=== PATIENT | male | born 1960 | race Caucasian/White ===

== ENCOUNTER 2017-05-06 21:55 | Observation (INO) | payer BC ==
[2017-05-06] MEDS ORDERED: ASPIRIN 81 MG PO STA (22:30)
[2017-05-06] MEDS ORDERED: SODIUM CHLORIDE 0.9% 500 ML IV STA (22:30)
[2017-05-06] MEDS ORDERED: FAMOTIDINE 20 MG/2 ML VIAL IV STA (22:31)
--- NOTE | 2017-05-06 22:34 | ED ---
General Adult HPI - General Chief complaint: Chest Pain Stated complaint: Chest tightness, Arm numbness Time Seen by Provider: 05/06/17 22:17 Source: patient, RN notes reviewed, old records reviewed Mode of arrival: wheelchair Limitations: no limitations - History of Present Illness Initial comments: 57-year-old male presents for evaluation of chest pain that began approximately 6:30 which was 4 hours prior to arrival. Pain began after eating pizza. States pain was similar to indigestion, he did have some belching. No nausea. No diaphoresis. Pain was substernal. Patient did complain of some left shoulder pain and left chest pain with his central chest pain. Patient was urged by family members to present for evaluation. He had some shortness of breath associated with pain. He has no known history of coronary artery disease , never had any cardiac testing in the past. No known family history of heart disease. Patient does have 16-ydiy-ndyz history of tobacco, he is hypertensive. No history diabetes. Patient states that he has had some trouble swallowing and is planned to have an evaluation with his primary care physician regarding this complaint. - Related Data Home Medications Medication Instructions Recorded Confirmed Atorvastatin [Lipitor] 10 mg PO HS 04/21/14 05/06/17 Allergies Allergy/AdvReac Type Severity Reaction Status Date / Time cephalexin monohydrate Allergy Rash/Hives Verified 05/06/17 22:00 [From Keflex] Penicillins Allergy Rash/Hives Verified 05/06/17 22:00 Review of Systems ROS Statement: Those systems with pertinent positive or pertinent negative responses have been documented in the HPI. ROS Other: All systems not noted in ROS Statement are negative. Past Medical History Past Medical History: Hyperlipidemia, Hypertension, Sleep Apnea/CPAP/BIPAP Additional Past Medical History / Comment(s): LEFT INGUINAL HERNIA, PREVIOUS HX OF SLEEP APNEA, NO LONGER AFTER WEIGHT LOSS History of Any Multi-Drug Resistant Organisms: None Reported Past Surgical History: Orthopedic Surgery Additional Past Surgical History / Comment(s): RT SHOULDER, HEMMOROIDECTOMY Past Anesthesia/Blood Transfusion Reactions: No Reported Reaction Past Psychological History: No Psychological Hx Reported Smoking Status: Former smoker Past Alcohol Use History: Occasional Past Drug Use History: None Reported - Past Family History Mother Family Medical History: No Reported History General Exam Limitations: no limitations General appearance: alert, in no apparent distress Head exam: Present: atraumatic, normocephalic Eye exam: Present: normal appearance, PERRL, EOMI ENT exam: Present: normal exam Neck exam: Present: normal inspection. Absent: tenderness, meningismus Respiratory exam: Present: normal lung sounds bilaterally. Absent: respiratory distress, wheezes Cardiovascular Exam: Present: regular rate, normal rhythm, normal heart sounds GI/Abdominal exam: Present: soft. Absent: distended, tenderness, guarding Extremities exam: Present: normal inspection, full ROM, normal capillary refill. Absent: pedal edema Neurological exam: Present: alert, oriented X3, CN II-XII intact. Absent: motor sensory deficit Psychiatric exam: Present: normal affect, normal mood Skin exam: Present: warm, dry, intact. Absent: cyanosis, diaphoretic Course Vital Signs 05/06/17 05/06/17 05/06/17 21:58 22:19 22:52 Temperature 98.2 F Pulse Rate 106 H 98 Respiratory 18 18 18 Rate Blood Pressure 141/90 147/98 O2 Sat by Pulse 98 98 Oximetry EKG Findings - EKG Comments: EKG Findings:: EKG shows normal sinus rhythm, ventricular rate 99, CT interval 144, QS duration 106, QTC 451, no ST segment elevation, T-wave inversion in lead 3, T-wave flattening in aVF Medical Decision Making - Medical Decision Making 57-year-old male presenting for evaluation of chest pain, radiating to left chest and left shoulder. Patient is pain-free while the emergency department. He has no complaints. Pain began several hours prior to presentation. EKG shows T-wave inversion in lead 3 and flattening in aVF, no ST segment changes. Patient does have significant risk factors including 55-btio-kzmh history hypertension and hypercholesterolemia. Laboratory studies reveal white blood cell count which is normal, hemoglobin stable 14.9, which was within normal limits, d-dimer negative troponin is 0.017. Chest x-ray shows no acute findings. Patient will be started on heparin awaiting serial cardiac enzymes. He will be observed with cardiology on consult. Diagnosis: Chest pain, unstable angina - Lab Data Result diagrams: 05/06/17 22:13 05/06/17 22:13 Lab Results 05/06/17 05/06/17 05/06/17 Range/Units 22:13 22:13 22:13 WBC 6.2 (3.8-10.6) k/uL RBC 4.77 (4.30-5.90) m/uL Hgb 14.9 (13.0-17.5) gm/dL Hct 44.4 (39.0-53.0) % MCV 93.2 (80.0-100.0) fL MCH 31.3 (25.0-35.0) pg MCHC 33.5 (31.0-37.0) g/dL RDW 13.7 (11.5-15.5) % Plt Count 184 (150-450) k/uL Neutrophils % 58 % Lymphocytes % 27 % Monocytes % 8 % Eosinophils % 3 % Basophils % 1 % Neutrophils # 3.6 (1.3-7.7) k/uL Lymphocytes # 1.7 (1.0-4.8) k/uL Monocytes # 0.5 (0-1.0) k/uL Eosinophils # 0.2 (0-0.7) k/uL Basophils # 0.1 (0-0.2) k/uL PT (9.0-12.0) sec INR (<1.2) APTT (22.0-30.0) sec D-Dimer (<0.60) mg/L FEU Sodium 143 (137-145) mmol/L Potassium 3.7 (3.5-5.1) mmol/L Chloride 104 (98-107) mmol/L Carbon Dioxide 26 (22-30) mmol/L Anion Gap 13 mmol/L BUN 21 H (9-20) mg/dL Creatinine 1.10 (0.66-1.25) mg/dL Est GFR (MDRD) Af Amer >60 (>60 ml/min/1.73 sqM) Est GFR (MDRD) Non-Af >60 (>60 ml/min/1.73 sqM) Glucose 87 (74-99) mg/dL Calcium 9.3 (8.4-10.2) mg/dL Magnesium 1.8 (1.6-2.3) mg/dL Total Bilirubin 0.5 (0.2-1.3) mg/dL AST 43 (17-59) U/L ALT 65 (21-72) U/L Alkaline Phosphatase 28 L (38-126) U/L Total Creatine Kinase 305 H (55-170) U/L CK-MB (CK-2) 1.5 (0.0-2.4) ng/mL CK-MB (CK-2) Rel Index 0.5 Troponin I 0.017 (0.000-0.034) ng/mL NT-Pro-B Natriuret Pep pg/mL Total Protein 6.5 (6.3-8.2) g/dL Albumin 3.9 (3.5-5.0) g/dL Lipase 164 (23-300) U/L 05/06/17 05/06/17 Range/Units 22:13 22:13 WBC (3.8-10.6) k/uL RBC (4.30-5.90) m/uL Hgb (13.0-17.5) gm/dL Hct (39.0-53.0) % MCV (80.0-100.0) fL MCH (25.0-35.0) pg MCHC (31.0-37.0) g/dL RDW (11.5-15.5) % Plt Count (150-450) k/uL Neutrophils % % Lymphocytes % % Monocytes % % Eosinophils % % Basophils % % Neutrophils # (1.3-7.7) k/uL Lymphocytes # (1.0-4.8) k/uL Monocytes # (0-1.0) k/uL Eosinophils # (0-0.7) k/uL Basophils # (0-0.2) k/uL PT 10.3 (9.0-12.0) sec INR 1.1 (<1.2) APTT 24.2 (22.0-30.0) sec D-Dimer 0.22 (<0.60) mg/L FEU Sodium (137-145) mmol/L Potassium (3.5-5.1) mmol/L Chloride (98-107) mmol/L Carbon Dioxide (22-30) mmol/L Anion Gap mmol/L BUN (9-20) mg/dL Creatinine (0.66-1.25) mg/dL Est GFR (MDRD) Af Amer (>60 ml/min/1.73 sqM) Est GFR (MDRD) Non-Af (>60 ml/min/1.73 sqM) Glucose (74-99) mg/dL Calcium (8.4-10.2) mg/dL Magnesium (1.6-2.3) mg/dL Total Bilirubin (0.2-1.3) mg/dL AST (17-59) U/L ALT (21-72) U/L Alkaline Phosphatase (38-126) U/L Total Creatine Kinase (55-170) U/L CK-MB (CK-2) (0.0-2.4) ng/mL CK-MB (CK-2) Rel Index Troponin I (0.000-0.034) ng/mL NT-Pro-B Natriuret Pep 41 pg/mL Total Protein (6.3-8.2) g/dL Albumin (3.5-5.0) g/dL Lipase (23-300) U/L Critical Care Time Critical Care Time: Yes Total Critical Care Time: 35 Disposition Clinical Impression: Unstable angina pectoris Disposition: ADMITTED IP TO THIS [facility] Condition: Stable Referrals: Hardik Slade DO [Primary Care Provider] - 1-2 days Decision to Admit Reason: Admit from EC Decision Date: 05/06/17 Decision Time: 23:55
[2017-05-06 22:57] LABS: Basophils # (A) 0.1 k/uL (0-0.2); Basophils % (A) 1 %; Eosinophils # (A) 0.2 k/uL (0-0.7); Eosinophils % (A) 3 %; HCT 44.4 % (39.0-53.0); HGB 14.9 gm/dL (13.0-17.5); Lymphocytes # (A) 1.7 k/uL (1.0-4.8); Lymphocytes % (A) 27 %; MCH 31.3 pg (25.0-35.0); MCHC 33.5 g/dL (31.0-37.0); MCV 93.2 fL (80.0-100.0); Mean Platelet Volume 9.1; Monocytes # (A) 0.5 k/uL (0-1.0); Monocytes % (A) 8 %; Neutrophils # (A) 3.6 k/uL (1.3-7.7); Neutrophils % (A) 58 %; Platelet Count 184 k/uL (150-450); RBC 4.77 m/uL (4.30-5.90); RDW 13.7 % (11.5-15.5); WBC 6.2 k/uL (3.8-10.6)
--- NOTE | 2017-05-06 23:04 | XR ---
EXAMINATION TYPE: XR chest 2V DATE OF EXAM: 05/06/2017 COMPARISON: NONE HISTORY: Chest pain TECHNIQUE: Frontal and lateral views of the chest are obtained. FINDINGS: Heart and mediastinum are within normal limits. Lungs are clear. There are chest leads. Th ere is no sign of pleural effusion. Bony thorax is intact. IMPRESSION: No active cardiopulmonary disease.
[2017-05-06 23:08] LABS: ALT 65 U/L (21-72); AST 43 U/L (17-59); Albumin 3.9 g/dL (3.5-5.0); Alkaline Phosphatase 28 U/L (38-126); Anion Gap 13 mmol/L; Blood Urea Nitrogen 21 mg/dL (9-20); Calcium 9.3 mg/dL (8.4-10.2); Carbon Dioxide 26 mmol/L (22-30); Chloride 104 mmol/L (98-107); Glucose 87 mg/dL (74-99); Lipase 164 U/L (23-300); Magnesium 1.8 mg/dL (1.6-2.3); Potassium 3.7 mmol/L (3.5-5.1); Sodium 143 mmol/L (137-145); Total Bilirubin 0.5 mg/dL (0.2-1.3); Total Protein 6.5 g/dL (6.3-8.2)
[2017-05-06 23:20] LABS: D-Dimer 0.22 mg/L FEU (<0.60); INR 1.1 (<1.2); Partial Thromboplastin Time 24.2 sec (22.0-30.0); Prothrombin Time 10.3 sec (9.0-12.0)
[2017-05-06 23:22] LABS: Creatine Kinase MB 1.5 ng/mL (0.0-2.4); Troponin I 0.017 ng/mL (0.000-0.034)
[2017-05-06] MEDS ORDERED: HEPARIN SOD,PORK IN 0.45% NACL 25,000 UNIT in 0.45% NACL 1 500ML.BAG IV SCH (23:45)
[2017-05-06] MEDS ORDERED: HEPARIN SODIUM,PORCINE 5,000 UNIT/ML 1 ML VIAL IV ONE (23:48)
[2017-05-06] MEDS ORDERED: HEPARIN SODIUM,PORCINE 5,000 UNIT/ML 1 ML VIAL IV PRN (23:48)
[2017-05-06] MEDS ORDERED: NALOXONE 0.4 MG/ML 1 ML VIAL IV PRN (23:49)
[2017-05-06] MEDS ORDERED: MORPHINE SULFATE 2 MG/ML SYRINGE IV PRN (23:49)
[2017-05-06] MEDS ORDERED: ONDANSETRON 4 MG/2 ML VIAL IVP PRN (23:49)
[2017-05-06] MEDS ORDERED: NITROGLYCERIN SL TABS 0.4 MG TAB SUBLINGUAL PRN (23:52)
[2017-05-07] MEDS: SODIUM CHLORIDE 0.9% 1,000 ML IV SCH ×2 (00:09→00:10)
[2017-05-07 01:00] VITALS: BMI 28.1
[2017-05-07 05:27] LABS: Creatine Kinase MB 1.6 ng/mL (0.0-2.4)
[2017-05-07 05:34] LABS: Troponin I 0.125 ng/mL (0.000-0.034)
[2017-05-07] MEDS ORDERED: METOPROLOL TARTRATE 25 MG TAB PO ONE (06:00)
[2017-05-07 07:56] LABS: ALT 72 U/L (21-72); AST 43 U/L (17-59); Albumin 3.9 g/dL (3.5-5.0); Alkaline Phosphatase 28 U/L (38-126); Anion Gap 10 mmol/L; Blood Urea Nitrogen 16 mg/dL (9-20); Calcium 9.1 mg/dL (8.4-10.2); Carbon Dioxide 30 mmol/L (22-30); Chloride 103 mmol/L (98-107); Glucose 85 mg/dL (74-99); Potassium 4.1 mmol/L (3.5-5.1); Sodium 143 mmol/L (137-145); Total Bilirubin 0.7 mg/dL (0.2-1.3); Total Protein 6.5 g/dL (6.3-8.2)
[2017-05-07 07:58] LABS: Basophils # (A) 0.1 k/uL (0-0.2); Basophils % (A) 1 %; Eosinophils # (A) 0.4 k/uL (0-0.7); Eosinophils % (A) 7 %; HCT 43.8 % (39.0-53.0); HGB 14.7 gm/dL (13.0-17.5); Lymphocytes # (A) 1.4 k/uL (1.0-4.8); Lymphocytes % (A) 25 %; MCH 30.9 pg (25.0-35.0); MCHC 33.5 g/dL (31.0-37.0); MCV 92.2 fL (80.0-100.0); Mean Platelet Volume 8.8; Monocytes # (A) 0.4 k/uL (0-1.0); Monocytes % (A) 7 %; Neutrophils # (A) 3.1 k/uL (1.3-7.7); Neutrophils % (A) 56 %; Platelet Count 188 k/uL (150-450); RBC 4.76 m/uL (4.30-5.90); RDW 12.4 % (11.5-15.5); WBC 5.6 k/uL (3.8-10.6)
[2017-05-07] MEDS ORDERED: ALPRAZolam 0.5 MG TAB PO PRN (10:05)
[2017-05-07] MEDS ORDERED: NITROGLYCERIN SL TABS 0.4 MG TAB SUBLINGUAL PRN (10:05)
[2017-05-07] MEDS ORDERED: ALPRAZolam 0.25 MG TAB PO PRN (10:05)
[2017-05-07] MEDS ORDERED: SODIUM CHLORIDE 0.9% 1,000 ML in EMPTY BAG 1 BAG IV ONE (10:05)
[2017-05-07] MEDS ORDERED: ASPIRIN 325 MG TAB PO STA (10:07)
[2017-05-07] MEDS ORDERED: ATORVASTATIN 80 MG TAB PO STA (10:07)
--- NOTE | 2017-05-07 10:28 | CONS ---
CONSULTATION Mr. Regalado is a 57-year-old male with a history of hyperlipidemia, who presented with symptoms of palpitation and discomfort in the chest that occurred after eating pizza. He has no prior history of cardiac disease. He is usually active physically without difficulty. Denies any exertional chest pain or dyspnea. Recently, he had 2 episodes where he had some difficulty swallowing. Yesterday after he ate pizza, he felt his heart pounding and felt some discomfort in the chest. Came into the emergency room for further evaluation. He has no prior cardiac history. He denies any history of PND, orthopnea, or peripheral edema. No dizziness or syncope. His coronary risk factors are remarkable for hyperlipidemia. He has a remote history of smoking and a prior history of hypertension that he is off treatment after he has became active physically. He is nondiabetic. MEDICATION: His medications at home include Lipitor 10 mg daily, and ibuprofen on a p.r.n. basis. REVIEW OF SYSTEMS: Respiratory system: No history of documented asthma, emphysema or bronchitis. No recent wheezing. GI system: He had difficulty swallowing at times. No recent nausea or vomiting. system: No dysuria or hematuria. Nervous system: No stroke or seizure. PHYSICAL EXAMINATION: He is a 57-year-old male, alert, oriented, in no apparent distress. Blood pressure running in the 150s to 180s with a diastolic in the 100, heart rate in the 70s. HEAD: Normocephalic. Eyes: Sclerae anicteric. Neck: Good upstroke. No bruit. No jugular venous distention. LUNGS: Clear to auscultation. HEART: Regular rate and rhythm. S1, S2. No S3. No rub. ABDOMEN: Soft, nontender. Positive bowel sounds. No organomegaly. EXTREMITIES: No edema. Intact pulses. LAB DATA: Lab data revealed BUN and creatinine 16 and 0.8, potassium 4.1. Troponin of 0.17 and then 0.125. Hemoglobin of 14.7. EKG reveals sinus mechanism, normal axis, intervals with no acute changes. IMPRESSION: 1. Symptoms of chest discomfort with palpitation with mild elevation in troponin, rule out non ST-segment elevation myocardial infarction. 2. Hypertension. 3. Hyperlipidemia. RECOMMENDATION: I have recommended proceeding with coronary angiography to assess his status and guide his treatment. The rationale behind the procedure as well as risks and complications were discussed with the patient who is in full understanding and agreement. In the meantime, he will be started on beta tatyana in addition to a NOAH inhibitor to optimize his blood pressure and depending on the results of his workup, further recommendations will be made. Thank you for this consult. I will follow with you. TELMA / LETICIA: [id number] /
--- NOTE | 2017-05-07 10:44 | P.HPIM ---
History of Present Illness 57-year-old male presents for evaluation of chest pain that began approximately 6:30 which was 4 hours prior to arrival. Pain began after eating pizza. States pain was similar to indigestion, he did have some belching. No nausea. No diaphoresis. Pain was substernal. Patient did complain of some left shoulder pain and left chest pain with his central chest pain. Patient was urged by family members to present for evaluation. He had some shortness of breath associated with pain. He has no known history of coronary artery disease , never had any cardiac testing in the past. No known family history of heart disease. Patient does have 60-dsix-vpyy history of tobacco, he is hypertensive. No history diabetes. Patient states that he has had some trouble swallowing and is planned to have an evaluation with his primary care physician regarding this complaint. Vision screen completely resolved at this point of time and patient appears to have gastritis and patient did take His ibuprofen as today for his left rotator cuff pain. Although patient had set of troponin is negative second one is minimally elevated to 0.125 and the there is no other exhalation for troponin elevation because of his cardiology evaluated the patient and there recommending cardiac catheterization which will be done today. Patient's blood pressure is elevated as well and if cardiac cath is negative patient probably can be discharged if cleared by cardiology later today and he will need a Prilosec prescription for 15 days which will be provided and also patient will be started on lisinopril 5 mg and patient was counseled to check the blood pressure at home take to the primary care physician's office his blood pressures are consistently elevated here and patient was started on lisinopril by cardiology. Review of Systems REVIEW OF SYSTEMS: CONSTITUTIONAL: No fever, no malaise, no fatigue. HEENT: No recent visual problems or hearing problems. Denied any sore throat. CARDIOVASCULAR: No orthopnea, PND, no palpitations, no syncope. PULMONARY: No shortness of breath, no cough, no hemoptysis. GASTROINTESTINAL: No diarrhea, no nausea, no vomiting, no abdominal pain. Normoactive bowel sounds. NEUROLOGICAL: No headaches, no weakness, no numbness. HEMATOLOGICAL: Denies any bleeding or petechiae. GENITOURINARY: Denies any burning micturition, frequency, or urgency. MUSCULOSKELETAL/RHEUMATOLOGICAL: Denies any joint pain, swelling, or any muscle pain. ENDOCRINE: Denies any polyuria or polydipsia. The rest of the 14-point review of systems is negative. Past Medical History Past Medical History: Hyperlipidemia, Hypertension, Sleep Apnea/CPAP/BIPAP Additional Past Medical History / Comment(s): LEFT INGUINAL HERNIA, PREVIOUS HX OF SLEEP APNEA, NO LONGER AFTER WEIGHT LOSS History of Any Multi-Drug Resistant Organisms: None Reported Past Surgical History: Hernia Repair, Orthopedic Surgery Additional Past Surgical History / Comment(s): left SHOULDER arthroscopy, right rotator cuff, HEMMOROIDECTOMY, dimas inguinal hernia repair and repair of hydrocele Past Anesthesia/Blood Transfusion Reactions: No Reported Reaction Past Psychological History: No Psychological Hx Reported Smoking Status: Former smoker Past Alcohol Use History: Occasional Additional Past Alcohol Use History / Comment(s): SMOKED FOR 33 YRS, LESS THAN 1 PPD Past Drug Use History: None Reported - Past Family History Mother Family Medical History: No Reported History Brother(s) Family Medical History: Diabetes Mellitus Medications and Allergies Home Medications Medication Instructions Recorded Confirmed Type Atorvastatin [Lipitor] 10 mg PO HS 04/21/14 05/07/17 History Lisinopril [Prinivil] 5 mg PO DAILY #30 tablet 05/07/17 Rx Omeprazole [PriLOSEC] 40 mg PO AC-BRKFST #14 capsule. 05/07/17 Rx Allergies Allergy/AdvReac Type Severity Reaction Status Date / Time cephalexin monohydrate Allergy Rash/Hives Verified 05/07/17 08:20 [From Keflex] Penicillins Allergy Rash/Hives Verified 05/07/17 08:20 Physical Exam Vitals: Vital Signs Temp Pulse Pulse Resp BP BP Pulse Ox 05/07/17 08:50 179/105 05/07/17 08:00 98.5 F 72 16 187/115 96 05/07/17 05:30 156/102 05/07/17 04:00 96.9 F L 87 18 161/111 95 05/07/17 01:10 85 18 05/07/17 01:05 158/92 05/07/17 00:49 98.5 F 92 18 96 05/07/17 00:41 98.4 F 87 18 158/87 100 05/07/17 00:13 98 F 92 18 163/86 100 05/06/17 22:52 98 18 147/98 98 05/06/17 22:19 18 01/13/18 21:58 98.2 F 106 H 18 141/90 98 Intake and Output 05/06/17 05/07/17 05/07/17 22:59 06:59 14:59 Other: Voiding Method Toilet Toilet # Voids 3 1 Weight 81.647 kg 81.647 kg PHYSICAL EXAMINATION: GENERAL: The patient is alert and oriented x3, not in any acute distress. Well developed, well nourished. HEENT: Pupils are round and equally reacting to light. EOMI. No scleral icterus. No conjunctival pallor. Normocephalic, atraumatic. No pharyngeal erythema. No thyromegaly. CARDIOVASCULAR: S1 and S2 present. No murmurs, rubs, or gallops. PULMONARY: Chest is clear to auscultation, no wheezing or crackles. ABDOMEN: Soft, nontender, nondistended, normoactive bowel sounds. No palpable organomegaly. MUSCULOSKELETAL: No joint swelling or deformity. EXTREMITIES: No cyanosis, clubbing, or pedal edema. NEUROLOGICAL: Gross neurological examination did not reveal any focal deficits. SKIN: No rashes. Results CBC & Chem 7: 05/07/17 06:21 05/07/17 06:21 Labs: Abnormal Lab Results - Last 24 Hours (Table) 05/06/17 05/06/17 05/07/17 Range/Units 22:13 22:13 03:53 APTT (22.0-30.0) sec BUN 21 H (9-20) mg/dL Alkaline Phosphatase 28 L (38-126) U/L Total Creatine Kinase 305 H 266 H (55-170) U/L Troponin I 0.125 H* (0.000-0.034) ng/mL 05/07/17 05/07/17 Range/Units 06:21 06:21 APTT 38.7 H (22.0-30.0) sec BUN (9-20) mg/dL Alkaline Phosphatase 28 L (38-126) U/L Total Creatine Kinase (55-170) U/L Troponin I (0.000-0.034) ng/mL Thrombosis Risk Factor Assmnt - Choose All That Apply Each Factor Represents 1 point: Age 41-60 years, Obesity (BMI >25) Thrombosis Risk Factor Assessment Total Risk Factor Score: 2 Thrombosis Risk Factor Assessment Level: Low Risk Assessment and Plan Plan: 1 chest pain, possibility of non-ST elevation myocardial infarction: Patient does have minimally elevated troponins and patient underwent will undergo cardiac catheterization today and further management depending on cardiac cath results. Patient is presently on IV heparin. -Possibly day of gastritis according to the symptomology patient appears to have gastritis or gastroesophageal reflux disease patient was started on Protonix and patient will be discharged on Prilosec of cardiac cath is negative. -Hyperlipidemia for which patient will be continued on atorvastatin -Hypertension further management as mentioned above history. Discharge and disposition issues as per the HPI
[2017-05-07 10:45] LABS: Creatine Kinase MB 1.3 ng/mL (0.0-2.4)
--- NOTE | 2017-05-07 10:45 | P.DS ---
Providers Date of admission: 05/06/17 23:49 Attending physician: Fozia Fine Consults: 05/06/17 23:50 Consult Physician Urgent Consulting Provider: Jayden Prieto Consult Reason/Comments: UA Do you want consulting provider notified?: Yes, Notify in am Primary care physician: Hardik Slade [facility] Course: As mentioned in HPI Patient Condition at Discharge: Stable Plan - Discharge Summary New Discharge Prescriptions: New Lisinopril [Prinivil] 5 mg PO DAILY #30 tablet Omeprazole [PriLOSEC] 40 mg PO AC-BRKFST #14 capsule. Discontinued Ibuprofen [Motrin] 800 mg PO Q6HR PRN PRN Reason: Pain No Action Atorvastatin [Lipitor] 10 mg PO HS Discharge Medication List Atorvastatin [Lipitor] 10 mg PO HS 04/21/14 [History] Lisinopril [Prinivil] 5 mg PO DAILY #30 tablet 05/07/17 [Rx] Omeprazole [PriLOSEC] 40 mg PO AC-BRKFST #14 capsule. 05/07/17 [Rx] Follow up Appointment(s)/Referral(s): Hardik Slade DO [Primary Care Provider] - 3 Days Discharge Disposition: HOME SELF-CARE
[2017-05-07 11:00] LABS: Troponin I 0.079 ng/mL (0.000-0.034)
[2017-05-07] MEDS: LISINOPRIL 5 MG TAB PO SCH ×2 (11:07→20:42)
[2017-05-07] MEDS: PANTOPRAZOLE 40 MG/10 ML VIAL IVP SCH ×2 (11:08→20:42)
[2017-05-07] MEDS ORDERED: amLODIPine 5 MG TAB PO STA (12:30)
[2017-05-07] MEDS ORDERED: SODIUM CHLORIDE 0.9% 1,000 ML IV ONE (13:27)
[2017-05-07] MEDS ORDERED: diphenhydrAMINE 50 MG/ML 1 ML VIAL ONE (13:34)
[2017-05-07] MEDS ORDERED: VERAPAMIL 2.5 MG/ML 2 ML AMP ONE ×2 (13:34→13:35)
[2017-05-07] MEDS ORDERED: LIDOCAINE 2% INJ 20 MG/ML (20 ML MDV) ONE (13:34)
[2017-05-07] MEDS ORDERED: fentaNYL (PF) 50 MCG/ML 2 ML AMP ONE (13:34)
[2017-05-07] MEDS ORDERED: HEPARIN SODIUM,PORCINE 30 ML 30 ML ONE (13:35)
[2017-05-07] MEDS ORDERED: fentaNYL (PF) 50 MCG/ML 2 ML AMP IVP ONE (14:04)
[2017-05-07] MEDS ORDERED: MIDAZOLAM 2 MG/2 ML VIAL IV ONE (14:05)
[2017-05-07] MEDS ORDERED: NITROGLYCERIN SL TABS 0.4 MG TAB SUBLINGUAL ONE ×2 (14:05)
[2017-05-07] MEDS ORDERED: MIDAZOLAM 2 MG/2 ML VIAL ONE (14:06)
[2017-05-07] MEDS ORDERED: LIDOCAINE 2% INJ 20 MG/ML SQ ONE (14:06)
[2017-05-07] MEDS ORDERED: VERAPAMIL SYRINGE (5 MG/10 ML) INTRAARTER ONE (14:09)
[2017-05-07] MEDS ORDERED: HEPARIN SODIUM 1,000 UN/ML (10ML VL) IV ONE (14:18)
[2017-05-07] MEDS ORDERED: HEPARIN SODIUM 1,000 UN/ML (10ML VL) ONE (14:19)
[2017-05-07] MEDS ORDERED: IOHEXOL 350 MG/ML 125ML BOTTLE INJ ONE (14:20)
[2017-05-07] MEDS ORDERED: RX INFO: IV CONTRAST WAS GIVEN 1 EACH MISC MISCELLANE PRN (14:28)
[2017-05-07] MEDS ORDERED: SODIUM CHLORIDE 0.9% 1,000 ML IV SCH (14:30)
--- NOTE | 2017-05-07 16:13 | CC ---
CARDIAC CATHETERIZATION REPORT Nikhil Gayle is a 57-year-old male with known history of hypertension, hyperlipidemia, who presented with vague symptoms in the chest with palpitations. After presentation there was an increase in his troponin. In view of that recommendation made regarding cardiac catheterization, the procedures, risks and complication were discussed. The patient was in full understanding and agreement. PROCEDURE: Patient was brought to supervisor [employer] [facility] in a fasting semisedated state after receiving fentanyl and Benadryl and achieving moderate conscious sedated state. Using Xylocaine anesthesia and Seldinger technique, a 6-Czech sheath was introduced in the right radial artery. Selective right and left angiography performed using 5-Czech 3-1/2 bend right and left Lissette catheters. Multiple views of the coronary arteries including hemiaxial view was obtained. Following that, 5-Czech tight pigtail catheter was introduced into the left ventricle and a 30 degree WALSH view of the left ventricle was obtained. Following that, the catheter and sheaths were removed. Hemostasis was obtained with deployment of a TR band. There was no immediate complication. Patient is returned to his room in stable condition. Of note, the patient received 4500 units of intravenous heparin as well as intra-arterial verapamil. FINDINGS: LEFT MAIN: This is a large-sized vessel bifurcating into left circumflex and left anterior descending artery. Left main coronary artery is without any obstructive coronary artery disease. LEFT ANTERIOR DESCENDING ARTERY: This is a large-sized vessel reaching to the apex with a wraparound apex segment giving rise to 2 diagonal branches of moderate caliber. The left anterior descending artery as well as branches have no evidence of obstructive disease. LEFT CIRCUMFLEX: This is a nondominant vessel, large in caliber giving rise to 3 obtuse marginal branches. The 1st and 3rd one are large in caliber. The left circumflex as well as branches have no evidence of obstructive coronary disease. RIGHT CORONARY ARTERY: This is a large dominant vessel bifurcating distally PDA and posterolateral segment branches, tortuous in the proximal and mid segment. The right coronary artery as well as branches have no evidence of obstructive coronary disease. LEFT VENTRICULOGRAM: Left ventriculogram is performed in 30 degree WALSH view and revealed normal left ventricular size, systolic function. Ejection fraction 60%. There was arrhythmia induced mitral regurgitation. HEMODYNAMICS: There was no gradient across the aortic valve. The ventricular end- diastolic pressure was 8 mmHg. CONCLUSION: 1. Normal coronary arteries. 2. Normal left ventricular size and systolic function. RECOMMENDATION: In view of finding anatomy, I recommend continue medical therapy with aggressive risk modifications being initiated. Those findings and recommendation were discussed with the patient and his family who are in full understanding and agreement. DURATION OF PROCEDURE: 17 minutes. TELMA / LETICIA: [id number] /
--- NOTE | 2017-05-07 16:19 | LTR ---
May 07, [address] Slade: I had the pleasure of performing cardiac catheterization on Mr. Nikhil Regalado at [facility] on May 07 and full copy of procedure note will be forwarded to you. In brief, he was found to have no evidence of obstructive coronary artery disease with preserved left ventricular size and systolic function. Based on those findings, I recommend continue medical therapy with aggressive risk modifications being initiated. Thank you again for allowing me to participate in his care. Please feel free to call for any questions. Sincerely, MMODL / IJN: [id number] /
[2017-05-07] MEDS: METOPROLOL TARTRATE 25 MG TAB PO SCH (20:42)
[2017-05-07] MEDS ORDERED: ATORVASTATIN 10 MG TAB PO SCH (21:00)
[2017-05-08] MEDS: SODIUM CHLORIDE 0.9% 1,000 ML IV SCH (03:39)
[2017-05-08 07:10] LABS: Basophils % (A) 1 %; Eosinophils # (A) 0.2 k/uL (0-0.7); Eosinophils % (A) 6 %; HCT 41.7 % (39.0-53.0); Lymphocytes # (A) 0.9 k/uL (1.0-4.8); Lymphocytes % (A) 23 %; MCH 31.3 pg (25.0-35.0); MCHC 33.5 g/dL (31.0-37.0); MCV 93.4 fL (80.0-100.0); Mean Platelet Volume 8.7; Monocytes # (A) 0.3 k/uL (0-1.0); Monocytes % (A) 9 %; Neutrophils # (A) 2.3 k/uL (1.3-7.7); Neutrophils % (A) 59 %; Platelet Count 151 k/uL (150-450); RBC 4.46 m/uL (4.30-5.90); RDW 12.5 % (11.5-15.5); WBC 3.8 k/uL (3.8-10.6)
[2017-05-08] MEDS: PANTOPRAZOLE 40 MG/10 ML VIAL IVP SCH (08:05)
[2017-05-08] MEDS: LISINOPRIL 5 MG TAB PO SCH (08:05)
[2017-05-08] MEDS: METOPROLOL TARTRATE 25 MG TAB PO SCH (08:05)
[2017-05-08 08:12] VITALS: BP 144/90; PULSE 66; RESP 16; TEMP 98.3
--- NOTE | 2017-05-08 08:53 | PN ---
PROGRESS NOTE Mr. Regalado is a 57-year-old male who presented with atypical chest pain and mild palpitation, had mild elevation in troponin with no significant EKG changes, underwent cardiac catheterization that revealed no evidence of obstructive coronary disease with a preserved left ventricular size systolic function. He is doing well this morning. Ambulating without difficulty. Denying any chest pain. No dizziness. No palpitation. He continues to be on aspirin once a day, Lipitor 20 mg daily, lisinopril 5 mg twice a day and metoprolol tartrate 25 mg twice a day. PHYSICAL EXAMINATION: Blood pressure 120/60 with the heart rate in the 60s. LUNGS: Clear. HEART: Regular rate and rhythm. S1, S2. No S3. No rub. ABDOMEN: Soft, nontender. EXTREMITIES: No edema. Right radial pulse intact. LAB DATA: Lab data revealed a peak troponin of 0.125. IMPRESSION: 1. Mild elevation of troponin consistent with non ST-segment elevation myocardial infarction with no evidence of obstructive coronary artery disease, could be related to vasospastic disease or ruptured plaque. 2. History of hypertension. 3. Hyperlipidemia. RECOMMENDATION: From the cardiac standpoint, he should be able to be discharged home today and follow up as an outpatient. MMODL / IJN: [id number] /
--- NOTE | 2017-05-08 11:15 | P.DS ---
Providers Date of admission: 05/06/17 23:49 Attending physician: Fozia Fine Consults: 05/06/17 23:50 Consult Physician Urgent Consulting Provider: Jayden Prieto Consult Reason/Comments: UA Do you want consulting provider notified?: Yes, Notify in am Primary care physician: [facility] Course: Patient was admitted for chest pain appears to be secondary to gastritis but patient did have minimally elevated troponins which cannot be explained, because of which patient underwent cardiac ablation which did not show any significant atherosclerotic coronary occlusive disease and patient is being discharged today with counseling that patient cannot take NSAIDs at least for a month and avoid alcohol, patient was complaining of occasional dysphagia for which patient will need outpatient evaluation. Patient is being discharged today with Prilosec for 14 days may benefit from outpatient upper GI endoscopy because of his the dysphagia issues and gastroesophageal reflux disease although not emergent at this time. She was started on lisinopril. For elevated blood pressure patient will benefit from 81 mg half aspirin considering his hyperlipidemia and hypertension to prevent future atherosclerotic vascular diseases PHYSICAL EXAMINATION: GENERAL: The patient is alert and oriented x3, not in any acute distress. Well developed, well nourished. HEENT: Pupils are round and equally reacting to light. EOMI. No scleral icterus. No conjunctival pallor. Normocephalic, atraumatic. No pharyngeal erythema. No thyromegaly. CARDIOVASCULAR: S1 and S2 present. No murmurs, rubs, or gallops. PULMONARY: Chest is clear to auscultation, no wheezing or crackles. ABDOMEN: Soft, nontender, nondistended, normoactive bowel sounds. No palpable organomegaly. MUSCULOSKELETAL: No joint swelling or deformity. EXTREMITIES: No cyanosis, clubbing, or pedal edema. NEUROLOGICAL: Gross neurological examination did not reveal any focal deficits. SKIN: No rashes. Patient Condition at Discharge: Stable Plan - Discharge Summary New Discharge Prescriptions: New Lisinopril [Prinivil] 5 mg PO DAILY #30 tablet Omeprazole [PriLOSEC] 40 mg PO AC-BRKFST #14 capsule.dr Discontinued Ibuprofen [Motrin] 800 mg PO Q6HR PRN PRN Reason: Pain No Action Atorvastatin [Lipitor] 10 mg PO HS Discharge Medication List Atorvastatin [Lipitor] 10 mg PO HS 04/21/14 [History] Lisinopril [Prinivil] 5 mg PO DAILY #30 tablet 05/07/17 [Rx] Omeprazole [PriLOSEC] 40 mg PO AC-BRKFST #14 capsule. 05/07/17 [Rx] Follow up Appointment(s)/Referral(s): Jayden Prieto MD [STAFF PHYSICIAN] - 05/11/17 3:30 pm (Follow up as scheduled for a Site Check with Dr. Prieto) Hardik Slade DO [Primary Care Provider] - 3 Days Patient Instructions/Handouts: *Surgery [facility] - After Heart Catheterization - Medical Office Receptionist Instructions Discharge Disposition: HOME SELF-CARE
[2017-05-08] MEDS ORDERED: ATORVASTATIN 20 MG TAB PO SCH (21:00)
[2017-05-08] MEDS ORDERED: ATORVASTATIN 10 MG TAB PO SCH (21:00)
== END 2017-05-08 11:41 | disposition home or self-care (01) ==
LOC: EC 21:55 → 3SUR 23:49 → 3OBS 05-08 07:13
PROVIDERS: ADMIT Internal Medicine; ATTEND Internal Medicine
DX: R07.89 Other chest pain (principal); R74.8 Abnormal levels of other serum enzymes; R20.0 Anesthesia of skin; M25.512 Pain in left shoulder; R00.2 Palpitations; R06.02 Shortness of breath; R13.10 Dysphagia, unspecified; K29.70 Gastritis, unspecified, without bleeding; K21.9 Gastro-esophageal reflux disease without esophagitis; E78.00 Pure hypercholesterolemia, unspecified; E78.5 Hyperlipidemia, unspecified; I10 Essential (primary) hypertension; E66.9 Obesity, unspecified; Z68.28 Body mass index [BMI] 28.0-28.9, adult; Z79.899 Other long term (current) drug therapy; Z88.0 Allergy status to penicillin; Z88.1 Allergy status to other antibiotic agents; Z87.891 Personal history of nicotine dependence; Z83.3 Family history of diabetes mellitus
CPT/HCPCS: 99291; 96375 ×3; 96376 ×2; 96365 ×2; 96366; 36415; 93005; 93458; 85379; 83880; 80053 ×2; 82550 ×2; 82553 ×2; 83690; 83735; 84484 ×2; 85025 ×3; 85610; 85730 ×2; 71046; G0378 ×3; C1894; C1769; J2001; J2250; J1644 ×3; J3010; C9113 ×2; Q9967

== ENCOUNTER 2017-05-29 08:33 | Day surgery (SDC) | payer BC ==
[2017-05-26 08:40] VITALS: BMI 28.1
[~2017-05-29 08:33] MED LIST: LACTATED RINGERS 1,000 ML IV SCH; LIDOCAINE 1% 20 ML VIAL (10MG/ML) FOR IV START INTRADERMA PRN
[2017-05-29 09:27] VITALS: RESP 16; TEMP 97.3
[2017-05-29] MEDS ORDERED: PROPOFOL 10 MG/ML 20 ML VIAL IV ONE (09:38)
[2017-05-29] MEDS ORDERED: MIDAZOLAM 2 MG/2 ML VIAL ONE (09:38)
[2017-05-29] MEDS ORDERED: LIDOCAINE 1% INJ 10MG/ML (20 ML MDV) ONE (09:38)
[2017-05-29] MEDS ORDERED: fentaNYL (PF) 50 MCG/ML 2 ML AMP ONE (09:38)
[2017-05-29 10:15] VITALS: BP 130/94; PULSE 57
--- NOTE | 2017-05-29 10:41 | P.PCN ---
Date of Procedure: 05/29/17 Procedure(s) Performed: Procedure: Esophagogastroduodenoscopy and biopsy. Preoperative diagnosis: Intermittent dysphagia and history of chest pain. Postoperative diagnosis: 1. Small sliding hiatal hernia with no obvious esophagitis or complicated reflux disease. 2. Mild antral gastritis. 3. Multiple biopsies obtained from the duodenum, antrum and esophagus. Preparation and sedation: Was provided by anesthesia. Brief clinical history: The patient is a 57-year-old male who was scheduled for this evaluation because of history of intermittent episodes of solid food dysphagia that started around the holidays. The patient denied history of acid reflux. There is family history of esophageal cancer in his father. Procedure: With the patient on his left lateral decubitus position and after informed consent and adequate sedation, I passed the Olympus-GIF 160 video upper endoscope through the cricopharyngeus down the esophagus. GE junction was around 38 cm from the incisors and there was a 1-2 cm sliding hiatal hernia but no obvious esophagitis or complicated reflux disease. I did not see any corrugations or strictures or any tumors or extrinsic compression on the esophagus. The endoscope was then passed into the stomach which was insufflated with air and inspected in detail including the retroflex view in the cardia. There was some mottling and erythema in the antrum but no ulcers or erosions. Pyloric channel, duodenal bulb, post bulbar area and descending duodenum appeared within normal limits. Because of his symptoms, I obtained biopsies from the duodenum, antrum and esophagus then the endoscope was withdrawn. The patient tolerated the procedure well. Plan: The patient was reassured. Will await biopsy results. Consideration can be given for further workup for motility disorders. I will be happy to see in the office if his symptoms persist. He will follow up with you as planned.
== END 2017-05-29 10:32 | disposition home or self-care (01) ==
LOC: ORWHC2ENDO 08:33
DX: K29.50 Unspecified chronic gastritis without bleeding (principal); K20.0 Eosinophilic esophagitis; K44.9 Diaphragmatic hernia without obstruction or gangrene; G47.33 Obstructive sleep apnea (adult) (pediatric); I10 Essential (primary) hypertension; E78.5 Hyperlipidemia, unspecified; Z88.1 Allergy status to other antibiotic agents; Z88.0 Allergy status to penicillin; Z79.899 Other long term (current) drug therapy; Z80.0 Family history of malignant neoplasm of digestive organs
CPT/HCPCS: 43239; J2250; J2001; J3010; J2704; 88305

== ENCOUNTER 2021-02-28 06:25 | Emergency (ER) | payer BC ==
[2021-02-28 06:38] VITALS: BP 177/100; PULSE 64; RESP 18; TEMP 98.2
--- NOTE | 2021-02-28 06:56 | ED ---
URI HPI - General Chief Complaint: Upper Respiratory Infection Stated Complaint: Cough, COVID exposure Time Seen by Provider: 02/28/21 06:39 Source: patient, RN notes reviewed Mode of arrival: ambulatory Limitations: no limitations - History of Present Illness Initial Comments: 61-year-old male presents emergency Department with chief complaint of cough congestion slight body aches. Patient states that his whole family has tested positive for COVID-19. Patient is unvaccinated, has not had prior COVID-19 infection denies any chest pain shortness breath nausea vomiting diarrhea constipation patient states that she feels quite improved compared to yesterday. Patient symptoms started 2-3 days ago. - Related Data Home Medications Medication Instructions Recorded Confirmed Atorvastatin [Lipitor] 10 mg PO HS 04/21/14 05/29/17 Ascorbic Acid [Vitamin C] 1,000 mg PO HS 05/26/17 05/29/17 Aspirin 650 mg PO ONCE PRN 05/26/17 05/29/17 Cholecalciferol (Vitamin D3) 2,000 unit PO HS 05/26/17 05/29/17 [Vitamin D3] Ferrous Sulfate [Feosol] 325 mg PO DAILY 05/26/17 05/29/17 Melatonin 9 mg PO HS 05/26/17 05/29/17 Multivitamins, Thera [Multivitamin 1 tab PO HS 05/26/17 05/29/17 (formulary)] Niacin 500 mg PO HS 05/26/17 05/29/17 Merlin-3 Fatty Acids/Fish Oil [Fish 2,000 mg PO HS 05/26/17 05/29/17 Oil 1,000 mg Softgel] lisinopriL [Zestril] 10 mg PO DAILY 05/26/17 05/29/17 Previous Rx's Medication Instructions Recorded Omeprazole [PriLOSEC] 40 mg PO ROM-BRKFST #14 capsule. 05/07/17 Allergies Allergy/AdvReac Type Severity Reaction Status Date / Time cephalexin monohydrate Allergy Rash/Hives Verified 02/28/21 06:38 [From Keflex] Penicillins Allergy Rash/Hives Verified 02/28/21 06:38 Review of Systems ROS Statement: Those systems with pertinent positive or pertinent negative responses have been documented in the HPI. ROS Other: All systems not noted in ROS Statement are negative. Past Medical History Past Medical History: Hyperlipidemia, Hypertension, Sleep Apnea/CPAP/BIPAP Additional Past Medical History / Comment(s): LEFT INGUINAL HERNIA, PREVIOUS HX OF SLEEP APNEA, HOSPITALIZED 05-06-17 TO 05-08-17 AT [facility] FOR CHEST PAIN AND HEART CATH., STATES FOOD GETTING STUCK IN THROAT. History of Any Multi-Drug Resistant Organisms: None Reported Past Surgical History: Heart Catheterization, Hernia Repair, Orthopedic Surgery Additional Past Surgical History / Comment(s): left SHOULDER arthroscopy, right rotator cuff, HEMMOROIDECTOMY, dimas inguinal hernia repair and repair of hydrocele, HEART CATH 05/07/17 @ [facility]. Past Anesthesia/Blood Transfusion Reactions: No Reported Reaction Past Psychological History: No Psychological Hx Reported Smoking Status: Former smoker Past Alcohol Use History: Occasional Past Drug Use History: None Reported - Past Family History Mother Family Medical History: No Reported History Brother(s) Family Medical History: Diabetes Mellitus General Exam Limitations: no limitations General appearance: alert, in no apparent distress Head exam: Present: atraumatic, normocephalic, normal inspection Eye exam: Present: normal appearance, PERRL, EOMI. Absent: scleral icterus, conjunctival injection, periorbital swelling ENT exam: Present: normal exam, normal oropharynx, mucous membranes moist Neck exam: Present: normal inspection, full ROM. Absent: tenderness, meningismus, lymphadenopathy Respiratory exam: Present: normal lung sounds bilaterally. Absent: respiratory distress, wheezes, rales, rhonchi, stridor Cardiovascular Exam: Present: regular rate, normal rhythm, normal heart sounds. Absent: systolic murmur, diastolic murmur, rubs, gallop, clicks GI/Abdominal exam: Present: soft, normal bowel sounds. Absent: distended, tenderness, guarding, rebound, rigid Course Vital Signs 02/28/21 06:35 Temperature 98.2 F Pulse Rate 64 Respiratory 18 Rate Blood Pressure 177/100 O2 Sat by Pulse 99 Oximetry Medical Decision Making - Medical Decision Making Patient has positive for COVID-19. Patient will receive monoclonal antibodies patient's vitals are stable, patient is discharged in stable condition return parameters were discussed patient agrees with plan. - Lab Data Lab Results 02/28/21 Range/Units 06:56 Coronavirus (PCR) Detected A (Not Detectd) Disposition Clinical Impression: COVID-19 Disposition: HOME SELF-CARE Condition: Stable Instructions (If sedation given, give patient instructions): Coronavirus Disease 2019 (COVID-19) Additional Instructions: Please return to the Emergency Department if symptoms worsen or any other concerns. Is patient prescribed a controlled substance at d/c from ED?: No Referrals: Hardik Slade DO [Primary Care Provider] - 1-2 days Time of Disposition: 07:35
[2021-02-28] MEDS ORDERED: SODIUM CHLORIDE 0.9% 50 ML IVPB ONE (08:00)
[2021-02-28] MEDS ORDERED: BAMLANIVIMAB (EUA) 700 MG, ETESEVIMAB (EUA) 1,400 MG in SODIUM CHLORIDE 0.9% 50 ML IVPB ONE (08:15)
== END 2021-02-28 10:09 | disposition home or self-care (01) ==
LOC: EC 06:25
DX: U07.1 COVID-19 (principal); I10 Essential (primary) hypertension; Z88.1 Allergy status to other antibiotic agents; E78.5 Hyperlipidemia, unspecified; Z79.899 Other long term (current) drug therapy; Z88.0 Allergy status to penicillin; Z87.891 Personal history of nicotine dependence
CPT/HCPCS: 87635; 99283; J3490